=== PATIENT | male | born 1995 | race Caucasian/White ===

== ENCOUNTER 2019-11-29 10:38 | Emergency (ER) | payer MEDICARE, MEDICAID ==
[~2019-11-29] VITALS: Ht 188 cm; Wt 86.2 kg
[2019-11-29 10:46] VITALS: BP 118/78
[2019-11-29] MEDS ORDERED: OLAN10TA3 PO (11:01)
== END 2019-11-29 11:16 | disposition home or self-care (01) ==
LOC: ER 10:39
DX: F41.9 Anxiety disorder, unspecified (principal); F31.9 Bipolar disorder, unspecified; F15.90 Other stimulant use, unspecified, uncomplicated; Z76.0 Encounter for issue of repeat prescription; Z79.899 Other long term (current) drug therapy
CPT/HCPCS: 99283

== ENCOUNTER 2020-05-02 10:10 | Emergency (ER) | payer MEDICARE, MEDICAID ==
[~2020-05-02] VITALS: Ht 185.4 cm; Wt 90.2 kg
[~2020-05-02 10:10] MED LIST: OLAN10TA3 PO
[2020-05-02 10:11] VITALS: BP 142/91
[2020-05-02] MEDS ORDERED: AMOX500C2 PO (10:28)
[2020-05-02] MEDS ORDERED: amoxicillin 250mg capsule PO ONE (10:30)
== END 2020-05-02 11:23 | disposition home or self-care (01) ==
LOC: ER 10:10
DX: K04.7 Periapical abscess without sinus (principal); F41.9 Anxiety disorder, unspecified; F31.9 Bipolar disorder, unspecified; F15.90 Other stimulant use, unspecified, uncomplicated; Z79.899 Other long term (current) drug therapy
CPT/HCPCS: 99283

== ENCOUNTER 2022-04-08 21:14 | Emergency (ER) | payer MEDICARE, MEDICAID ==
[~2022-04-08] VITALS: Ht 185.4 cm; Wt 79.5 kg
[~2022-04-08 21:14] MED LIST changes: +IBUP-1984 PO; -OLAN10TA3 PO; +OLAN10TA73 PO; +SULF1TAB49 PO; +VENL75CA61 PO
[2022-04-08 21:19] VITALS: BP 134/85
[2022-04-08] MEDS ORDERED: LIDOcaine 1% W/epiNEPHrine 1:200,000 10ml vial IJ ONE (22:50)
[2022-04-08] MEDS ORDERED: TETanus/Pertussis (Acell)/Diphther VAC/PF (Tdap-Adult) 0.5ml syringe IMVAC ONE (22:50)
[2022-04-08] MEDS ORDERED: LIDOcaine 1% W/epiNEPHrine 1:100,000 20ml vial IJ ONE (22:55)
== END 2022-04-08 23:45 | disposition home or self-care (01) ==
LOC: ER 21:15
DX: S41.112A Laceration without foreign body of left upper arm, initial encounter (principal); F41.9 Anxiety disorder, unspecified; F31.9 Bipolar disorder, unspecified; F15.90 Other stimulant use, unspecified, uncomplicated; Z98.890 Other specified postprocedural states; Z79.2 Long term (current) use of antibiotics; Z79.899 Other long term (current) drug therapy; Z20.3 Contact with and (suspected) exposure to rabies; X58.XXXA Exposure to other specified factors, initial encounter; Y93.01 Activity, walking, marching and hiking; Y92.89 Other specified places as the place of occurrence of the external cause; Y99.8 Other external cause status
CPT/HCPCS: 12002; 90471; 90715; 99283